=== PATIENT | male | born 1995 | race Caucasian/White ===

== ENCOUNTER 2025-02-10 18:22 | Emergency (ER) | payer OTHER, SELFPAY ==
[2025-02-10 18:23] VITALS: BP 135/90; PULSE 109; RESP 20; TEMP 37.2; O2SAT 99; BMI 28.0
[2025-02-10 20:18] VITALS: BP 135/90; PULSE 108; RESP 18; TEMP 37.2; O2SAT 99
--- NOTE | 2025-02-10 20:19 | EDS_ITS ---
HPI History of Present Illness Chief Complaint: Bite PFSH PFSH Medical History no medical history Home Medications ?Medication ?Instructions ?Recorded ?Last Taken ?Type amoxicillin 875 mg-potassium 1 tab PO BID 02/10/25 Unk nown History clavulanate 125 mg tablet amoxicillin 875 mg-potassium 1 tab PO BID 5 days #10 t abs 02/10/25 Unknown Rx clavulanate 125 mg tablet Allergy/AdvReac Type Severity Reaction Status Date / Time No Known Allergies Allergy Verified 02/10/25 18:23 Family History no significant family his Surgical History no surgical history Social History Smoking Status: Never smoker EXAM Physical Exam Const Vital Signs: 02/10/25 18:23 02/10/25 20:18 02/10/25 20:18 Temperature 98.9 F 98.9 F Temperature Source Oral Oral Pulse Rate 109 H 108 H Respiratory Rate 20 H 18 Respiratory Effort Normal Non-Labored Respiratory Pattern Normal Blood Pressure 135/90 H 135/90 H Blood Pressure Mean 105 105 Pulse Ox 99 99 Oxygen Delivery Method Room Air Room Air 02/10/25 21:00 02/10/25 22:00 Temperature 98.6 F 98.6 F Temperature Source Oral Oral Pulse Rate 98 95 Respiratory Rate 18 16 Respiratory Effort Respiratory Pattern Blood Pressure 143/93 H 122/81 H Blood Pressure Mean 109 94 Pulse Ox 97 100 Oxygen Delivery Method Room Air Room Air MDM MDM MDM Narrative Medical decision making narrative: HISTORY OF PRESENT ILLNESS: Chief complaint: Cat bite 29-year-old male with no significant past medical history presents with concern for cat bite. yesterday and was started on Augmentin. He is not compliant with antibiotics. He noticed today streaking up his right arm with redness and swelling of right hand. Patient notes he is right-hand dominant. Denies diabetes or other immunocompromising states. Denies vomiting. Notes 2 doses of Augmentin. REVIEW OF SYSTEMS: Pertinent positives: Cat bite Pertinent negatives: Vomiting, fever PHYSICAL EXAM: Nursing triage notes reviewed, Vital signs reviewed Constitutional: please see mdm Extremities: Erythema and swelling noted to the dorsal lateral surface of the right hand essentially over the 2nd and 3rd MCP down to the base of the first digit. There is no fluctuance induration crepitus or bullae. There is lymphangitic streaking noted up right arm. Neuro: Intact 5/5 strength with ok sign (median), intact finger abduction (ulnar) intact wrist extension (radial n). Intact sensation in the radial, ulnar, and median nerve distributions. Skin: Puncture wound noted over the dorsum of the right hand. No purulent drainage. MEDICAL DECISION MAKING: Chief Complaint: please see HPI External records reviewed: No recent ED visits, recent advanced imaging Factors affecting care: none Social determinants of health: Denies IV drug use History obtained from others: none Consults: none MDM Narrative: The patient was initially afebrile, he was mildly tachycardic with heart rate of 109, borderline tachypneic with respirate of 20. Exam consistent with progressing cat bite. I considered the following differential diagnosis: Sequela of cat bite, sepsis I obtained a broad lab and imaging to further determine if the patient was suffering from a life-threatening etiology. Initially treat the patient with IV fluids and IV Unasyn empirically. ALL IMAGES (IF OBTAINED) HAVE BEEN PERSONALLY REVIEWED AND INTERPRETED BY MYSELF. CBC with leukocytosis suggestive of systemic inflammation, no anemia, no thrombocytopenia. Lactate is wnl indicating no end-organ hypoperfusion and/or hypoxia. BMP without evidence of significant electrolyte abnormalities, no anion gap, no acute kidney injury. X-ray of the patient's hand was read reviewed person by myself showed no evidence obvious bony injury or foreign body. Radiologist agreed my interpretation. Upon reassessment patient's heart rate improved from 109 to 95. Respiratory rate improved to 16. There is no signs of sepsis. No complicating factors such as immunocompromise state, vomiting, foreign bodies. Patient's only had 24 hours of antibiotics. I offered admission given redness and lymphangitic streak in however patient refused and he would like to go home and try oral antibiotics for a full course. I did extend his course from 5 to 10 days ago and additional 5 days of Augmentin. The patient and/or family, caregivers express understanding. The patient and/or family, caregivers agrees with the plan. Shared decision making: I will have a discussion with the patient and or visitors regarding risk/benefits of further testing or admission. They will be made aware of of the risk/benefits inherent in this decision they will be given the opportunity to voice understanding. Total critical care time today provided was at least 0 minutes. This excludes separately billable procedures. Critical care time (if documented) is secondary to the patient having high probability of clinically significant/life threatening deterioration in the patient's condition which required my urgent intervention. Impression: 1. Cat bite 2. Tachycardia Dispo: discharge This note was generated with [employer] dictation software. It may contain incorrect words, spelling, and punctuation that were not noted in review of the chart prior to signing. Lab Data Labs: Laboratory Results - last 24 hr 02/10/25 20:30 WBC 12.7 H RBC 5.65 Hgb 16.0 Hct 46.4 MCV 82.1 MCH 28.3 MCHC 34.5 RDW Std Deviation 38.4 RDW Coeff of Emily 13.0 Plt Count 315 MPV 8.9 Immature Gran % (Auto) 0.300 Neut % (Auto) 69.2 Lymph % (Auto) 22.2 [place] % (Auto) 6.8 Eos % (Auto) 0.9 Baso % (Auto) 0.6 Absolute Neuts (auto) 8.7 H Absolute Lymphs (auto) 2.81 Nucleated RBC % 0 Sodium 139 Potassium 3.8 Chloride 102 Carbon Dioxide 23.1 Anion Gap 14 BUN 14 Creatinine 1.00 Estim Creat Clear Calc 117.53 Est GFR (MDRD) Non-Af 104 BUN/Creatinine Ratio 13.7 Glucose 84 Lactic Acid 1.1 Calcium 9.7 Radiography Diagnostic Testing: Clinical Impression(s) from Imaging Studies Hand X-Ray 02/10/25 20:42 IMPRESSION: No fracture or dislocation. No radiopaque foreign body. Reading Location: [facility] Discharge Plan Triage Chief Complaint: Bite ED Provider: Luciano Diaz Dx/Rx/DC Orders Instructions: ED Cat Bite Prescriptions: New amoxicillin-pot clavulanate 875-125 mg tablet 1 tab PO BID 5 Days Qty: 10 0RF No Action amoxicillin-pot clavulanate 875-125 mg tablet 1 tab PO BID Primary Care Provider: Kacey Vazquez NP Referrals: Princess Leahy MD [Non-Staff, Pediatrics] Activity Restrictions/Additional Instructions: Thank you for trusting us with your care today! Your labs and images were overall reassuring. No definitive signs of sepsis. No sign of a foreign body or other complicating factor at the area of cat bite. Please take Tylenol (2 pills, 650 mg), ibuprofen (2 pills, 400 mg) every 6 hours as needed for pain and fever control. Please take antibiotics for a total of 10 days. Please return to the emergency department if your symptoms change or worsen. Specifically if you notice vomiting, severe pain, rapidly progressive redness over a matter of hours, if you lose consciousness or develop diffuse weakness to cause you not to be able to walk. Please follow with your primary care physician for further outpatient evaluation and management. Print Language: Citizen Of [place] Disposition Disposition: Home, Self Care Discharge Date/Time: 02/10/25 22:52
[2025-02-10 20:37] LABS: Hematocrit 46.4 % (40-54); Hemoglobin 16.0 g/dL (13.0-16.5); Immature Granulocytes Count 0.040 X10^3/uL (0.0-0.0); Mean Corp Hgb Conc 34.5 g/dL (32-36); Mean Corpuscular Volume 82.1 fL (80-94); Mean Platelet Vol. 8.9 fl (6.2-12.0); NRBC Flagged by Analyzer 0 % (0-5); Platelet Count 315 K/mm3 (150-450); RBC Distribution Width CV 13.0 % (11.6-14.6); RBC Distribution Width SD 38.4 fl (35.1-43.9); Red Blood Count 5.65 M/mm3 (4.6-6.2); White Blood Count 12.7 K/mm3 (4.4-11.0)
--- NOTE | 2025-02-10 20:42 | RAD_ITS ---
PROCEDURE: HAND MIN 3 VIEWS 02/10/2025 REASON FOR EXAM: PAIN AFTER CAT BITE TECHNIQUE: Procedure Code: PAULINO Modality: DX Procedure: HAND MIN 3 VIEWS Laterality: Right COMPARISON: None. FINDINGS: No acute fracture or dislocation. Alignment is anatomic. Preserved joint spaces. No aggressive osseous lesion. No marked soft tissue swelling or radiopaque foreign body. RAD/Hand Min 3 Views IMPRESSION: No fracture or dislocation. No radiopaque foreign body. Reading Location: [id number]
[2025-02-10] MEDS: Ampicillin/Sulbactam 3 GM in 0.9% Normal Saline (100mL MB+) 100 ML IV (20:44)
[2025-02-10] MEDS: 0.9% Normal Saline (1000mL) 1,000 ML 999 ML IV (20:44)
--- OUTSIDE RECORDS SUMMARY | 2025-02-10 20:53 | XMS RPT_ITS | CCD ---
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.Artemio YORK Primary Care Provider ARTEMIO MADSEN Attending Unavailable ARTEMIO MADSEN Primary Care Unavailable ARTEMIO MADSEN Primary Care Unavailable AMAIRANI MONTERO Referring Unavailable BLADIMIR FREEDMAN Attending Unavailable AMAIRANI MONTERO Attending Unavailable ARTEMIO MADSEN Referring Unavailable ARTEMIO MADSEN Primary Care Unavailable ARTEMIO MADSEN Referring Unavailable ARTEMIO MADSEN Primary Care Unavailable Problems Active Problems Problem Classification Problem Date Documented Da te Episodic/Chronic Coma; stupor; and brain damage (1 source) Daytime somnolence 04-08-2024 Episodic Gastrointestinal hemorrhage (5 sources) Gastrointestinal hemorrhage; Translations: [Hemorrhage of anus and rectum] Onset: 5 06-11-2024 Episodic Hemorrhoids (4 sources) Internal hemorrhoids; Translations: [Other hemorrhoids] Onset: 5 07-03-2024 Episodic Immunizations and screening for infectious disease (6 sources) Viral screening status; Translations: [Encounter for screening for other viral diseases] Onset: 5 04-07-2024 Episodic Malaise and fatigue (4 sources) Fatigue; Translations: [Other fatigue] Onset: 5 04-08-2024 Episodic Other gastrointestinal disorders (2 sources) Diarrhea; Translations: [Diarrhea, unspecified] 04-08-2024 Episodic Other gastrointestinal disorders (6 sources) Altered bowel function; Translations: [Other specified symptoms and signs involving the digestive system and abdomen] 04-08-2024 Episodic Other gastrointestinal disorders (2 sources) Diarrhea, unspecified; Translations: [Diarrhea, unspecified type] Onset: 5 Episodic Other gastrointestinal disorders (2 sources) Other specified symptoms and signs involving the digestive system and abdomen; Translations: [Change in bowel function] Onset: 5 Episodic Other gastrointestinal disorders (1 source) Change in bowel habit; Translations: [Change in bowel habits] Onset: 5 Episodic Other lower respiratory disease (2 sources) Snoring; Translations: [Snoring] 04-08-2024 Episodic Other lower respiratory disease (1 source) Snoring; Translations: [Snoring] Onset: 5 Episodic Other screening for suspected conditions (not mental disorders or infectious disease) (6 sources) Patient encounter status; Translations: [Encounter for screening for diabetes mellitus] Onset: 5 04-07-2024 Episodic Residual codes; unclassified (1 source) Daytime somnolence; Translations: [Other hypersomnia] 04-07-2024 Chronic Residual codes; unclassified (2 sources) Other hypersomnia; Translations: [Excessive daytime sleepiness] Onset: 5 Chronic Past or Other Problems Problem Classification Problem Date Documented Da te Episodic/Chronic Genitourinary symptoms and ill-defined conditions (7 sources) Increased frequency of urination; Translations: [Frequency of micturition] Onset: 05-04-2017 05-04-2017 Episodic Results Test Name Value Interpretation Reference Range Facil ity [id number] 07-03-2024 1944219 HNO ID: [id number] Author: NAYANA DOCKERY RN Service: ? Author Type: Registered Nurse Type: [id number] Filed: 07/03/2024 15:35 Note Text: The patient received a copy of Colonoscopy discharge instructions that contain information for how to contact the physician who performed the procedure and when to seek medical care. Normal [facility] ANES POSTPROC EVALon 025 ANES POSTPROC EVAL HNO ID: [id number] Author: ALEC SPEAR APRN.CRNA Service: Anesthesiology Author Type: Nurse Finance Consultant Type: Anesthesia Postprocedure Evaluation Filed: 07/03/2024 15:35 Note Text: POST ANESTHESIA EVALUATION NOTE : 1995 Procedure Summary Date: 07/03/24 Room / Location: Ambulatory Surgery Anesthesia Start: 1500 Anesthesia Stop: 1530 Procedure: COLONOSCOPY DIAGNOSTIC Diagnosis: Change in bowel habits BRBPR (bright red blood per rectum) Scheduled Providers: Bladimir Freedman MD Responsible Provider: Alec Spear APRN.CRNA Anesthesia Type: MAC ASA Status: 1 Anesthesia Type: MAC Last Vitals Vitals Value Taken Time BP 110/68 07/03/24 1530 Temp 36.4 ?C (97.5 ?F) 07/03/24 1530 Pulse 80 07/03/24 1530 Resp 18 07/03/24 1530 SpO2 98 % 07/03/24 1530 Post Anesthesia Patient Status Patient Evaluation: PACU. PACU/ICU Patient Condition: stable. Neurological Status: aware and responsive. Pulmonary Status: breathing comfortably on room air Airway Control: returned to baseline unsupported. Cardiovascular Status: stable. Pain Management: clinically adequate - multimodal analgesia pain management approach Postoperative Hydration: acceptable. Intraoperative Events: no significant anesthesia events Post Operative Nausea/Vomiting Status: no significant post operative nausea or vomiting Recommendation: continue current plan of care. Anesthesia Observations No Documentation SIGNATURE: Alec Spear APRN.CRNA PATIENT NAME: AWA Goss DATE: July 03, 2024 TIME: 3:34 PM CSN: [id number] Normal [facility] ANES PRE-OPon 07-03-2024 ANES PRE-OP HNO ID: [id number] Author: ALEC SPEAR APRN.CRNA Service: Anesthesiology Author Type: Nurse Finance Consultant Type: Anesthesia Preprocedure Evaluation Filed: 07/03/2024 15:34 Note Text: ANESTHESIOLOGY DAY OF SURGERY NOTE : 1995 Procedure Information Date/Time: 07/03/24 1430 Scheduled providers: Bladimir Freedman MD Procedure: COLONOSCOPY DIAGNOSTIC Location: Ambulatory Surgery Estimated body mass index is 26.61 kg/m? as calculated from the following: Height as of this encounter: 172.7 cm (5' 8). Weight as of this encounter: 79.4 kg (175 lb). Most recent hematocrit and potassium results: Hematocrit 43.8 05/26/2024 Potassium 4.3 05/26/2024 Relevant Problems No relevant active problems I - PHYSICAL EVALUATION AIRWAY Patient intubated: No. Tracheostomy tube not present Mallampati: II. TM distance: >3 FB. Neck ROM: full ROM without neurological symptoms. Mouth opening: adequate. Short neck: no. Thick neck: no II - ANESTHESIA PLAN ASA Score: 1 Anesthetic Plan: MAC The patient is not a current smoker. NPO Status: adequate Beta Glenny Monitoring Plan Monitoring plan: standard ASA. Post Procedure Analgesic Plan Postoperative analgesic plan: multimodal analgesia. Informed Consent Anesthetic risks, benefits, alternatives, personnel and consent discussed: yes. Patient / Responsible Libertarian agrees to proceed: yes Patient / Surrogate agrees to blood products: blood products not planned DNR status not reviewed with patient and/or family prior to surgery. Significant changes in the patient condition since the History and Physical, not otherwise documented in primary service progress note: no. Potential Anesthesia issues that may suggest increased risk of complications or contraindication to planned procedure: none. Vitals Value Taken Time BP 131/90 07/03/24 1355 Pulse 111 07/03/24 1355 Resp 16 07/03/24 1355 Temp 37.1 ?C (98.8 ?F) 07/03/24 1355 SpO2 98 % 07/03/24 1355 No current outpatient medications on file as of 07/03/2024. Facility-Administered Medications as of 07/03/2024 Medication Dose Route Frequency lactated ringers iv infusion 30 mL/hr INTRAVENOUS CONTINUOUS I have interviewed and examined the patient. I have reviewed the medical record and/or the pre-anesthesia evaluation, pertinent labs, and test results. This contains updated information obtained within 48 hours of Surgery/Procedure. SIGNATURE: Alec Spear APRN.VAULT KEEPER PATIENT NAME: AWA Goss DATE: July 03, 2024 TIME: 2:13 PM CSN: [id number] Normal [facility] Colonoscopyon 07-03-2024 Colonoscopy [facility] G[facility] Patient Name: Awa Goss Procedure Date: 07/03/2024 2:42 PM Date of : 1995 Admit Type: Outpatient Age: 28 Room: [place] [address] Gender: Male Note Status: Finalized Attending MD: Bladimir Freedman MD, [id number] Procedure: Colonoscopy Indications: Lower abdominal pain, Change in bowel habits Providers: Bladimir Freedman MD Patient Profile: Refer to note in patient chart for documentation of history and physical. Last Colonoscopy: none. The patient's first colonoscopy is today. Referring Physician: Amairani Montero (pa) (Referring MD) Medicines: Monitored Anesthesia Care, See the Anesthesia note for documentation of the administered medications Complications: No immediate complications. Requesting Provider: Procedure: Pre-Anesthesia Assessment: - Prior to the procedure, a History and Physical was performed, and patient medications and allergies were reviewed. The patient's tolerance of previous anesthesia was also reviewed. The risks and benefits of the procedure and the sedation options and risks were discussed with the patient. All questions were answered, and informed consent was obtained. Prior Anticoagulants: The patient has taken no anticoagulant or antiplatelet agents. ASA Grade Assessment: See anesthesia record. After reviewing the risks and benefits, the patient was deemed in satisfactory condition to undergo the procedure. After I obtained informed consent, the scope was passed under direct vision. Throughout the procedure, the patient's blood pressure, pulse, and oxygen saturations were monitored continuously. The Colonoscope was introduced through the anus and advanced to the terminal ileum, with identification of the appendiceal orifice and IC valve. I was present and participated during the entire procedure, including non-amaro portions, and during the administration and monitoring of Moderate Sedation. The colonoscopy was performed without difficulty. The patient tolerated the procedure well. The quality of the bowel preparation was good. The ileocecal valve, appendiceal orifice, and rectum were photographed. Moderate Sedation: MAC anesthesia was administered by the anesthesia team. MAC anesthesia was administered by the anesthesia team. Findings: The perianal and digital rectal examinations were normal. Pertinent negatives include normal sphincter tone and no palpable rectal lesions. The colon (entire examined portion) appeared normal. Biopsies for histology were taken with a cold forceps from the right colon and left colon for evaluation of microscopic colitis. The pathology specimens from the right colon were placed into Bottle Number 1. The pathology specimens from the left colon were placed into Bottle Number 2. Non-bleeding internal hemorrhoids were found during retroflexion. The hemorrhoids were medium-sized. The terminal ileum appeared normal for 10 cm. The exam was otherwise without abnormality on direct and retroflexion views. Impression: - The entire examined colon is normal. Biopsied. - Non-bleeding internal hemorrhoids. - The examined portion of the ileum was normal. - The examination was otherwise normal on direct and retroflexion views. Recommendation: - Patient has a contact number available for emergencies. The signs and symptoms of potential delayed complications were discussed with the patient. Return to normal activities tomorrow. Written discharge instructions were provided to the patient. - Resume previous diet. - Continue present medications. - Repeat colonoscopy at age 44 for screening purposes. - Return to referring physician as previously scheduled. - The patient is not currently taking anticoagulant or antiplatelet agents. Procedure Code(s): --- Professional --- 38246, Colonoscopy, flexible; with biopsy, single or multiple CPT copyright 2020 [employer]. All rights reserved. The codes documented in this report are preliminary and upon bushwalking guide review may be revised to meet current compliance requirements. Attending Participation: I personally performed the entire procedure. Scope In: 3:10:24 PM Scope Out: 3:23:54 PM MD Bladimir Suarez MD 07/03/2024 3:43:57 PM This report has been signed electronically by Bladimir Freedman MD Number of Addenda: 0 Note Initiated On: 07/03/2024 2:42 PM Estimated Blood Loss: Estimated blood loss was minimal. Normal [facility] Flexible sigmoidoscopy study on 07-03-2024 [facility] G[facility] Patient Name: Awa Goss Procedure Date: 07/03/2024 2:42 PM Date of : 1995 Admit Type: Outpatient Age: 28 Room: [place] [address] Gender: Male Note Status: Finalized Attending MD: Bladimir Freedman MD, [id number] Procedure: Colonoscopy Indications: Lower abdominal pain, Change in bowel habits Providers: Bladimir Freedman MD Patient Profile: Refer to note in patient chart for documentation of history and physical. Last Colonoscopy: none. The patient's first colonoscopy is today. Referring Physician: Amairani Montero (pa) (Referring ) Medicines: Monitored Anesthesia Care, See the Anesthesia note for documentation of the administered medications Complications: No immediate complications. Requesting Provider: Procedure: Pre-Anesthesia Assessment: - Prior to the procedure, a History and Physical was performed, and patient medications and allergies were reviewed. The patient's tolerance of previous anesthesia was also reviewed. The risks and benefits of the procedure and the sedation options and risks were discussed with the patient. All questions were answered, and informed consent was obtained. Prior Anticoagulants: The patient has taken no anticoagulant or antiplatelet agents. ASA Grade Assessment: See anesthesia record. After reviewing the risks and benefits, the patient was deemed in satisfactory condition to undergo the procedure. After I obtained informed consent, the scope was passed under direct vision. Throughout the procedure, the patient's blood pressure, pulse, and oxygen saturations were monitored continuously. The Colonoscope was introduced through the anus and advanced to the terminal ileum, with identification of the appendiceal orifice and IC valve. I was present and participated during the entire procedure, including non-amaro portions, and during the administration and monitoring of Moderate Sedation. The colonoscopy was performed without difficulty. The patient tolerated the procedure well. The quality of the bowel preparation was good. The ileocecal valve, appendiceal orifice, and rectum were photographed. Moderate Sedation: MAC anesthesia was administered by the anesthesia team. MAC anesthesia was administered by the anesthesia team. Findings: The perianal and digital rectal examinations were normal. Pertinent negatives include normal sphincter tone and no palpable rectal lesions. The colon (entire examined portion) appeared normal. Biopsies for histology were taken with a cold forceps from the right colon and left colon for evaluation of microscopic colitis. The pathology specimens from the right colon were placed into Bottle Number 1. The pathology specimens from the left colon were placed into Bottle Number 2. Non-bleeding internal hemorrhoids were found during retroflexion. The hemorrhoids were medium-sized. The terminal ileum appeared normal for 10 cm. The exam was otherwise without abnormality on direct and retroflexion views. Impression: - The entire examined colon is normal. Biopsied. - Non-bleeding internal hemorrhoids. - The examined portion of the ileum was normal. - The examination was otherwise normal on direct and retroflexion views. Recommendation: - Patient has a contact number available for emergencies. The signs and symptoms of potential delayed complications were discussed with the patient. Return to normal activities tomorrow. Written discharge instructions were provided to the patient. - Resume previous diet. - Continue present medications. (more content not included)... PROVATION [facility] Radiology Study observation (narrative) [facility] HISTORY PHYSICALon 5 HISTORY PHYSICAL HNO ID: [id number] Author: BLADIMIR FREEDMAN MD Service: Gastroenterology Author Type: Physician Type: H&P Filed: 07/03/2024 14:53 Note Text: Endoscopy pre-operative HANDP HANDP completed prior to the start time of the procedure. IMPRESSION AND PLAN HPI: This is a 28 year old male. For colonoscopy Abdominal pain, BRBPR, changes in bowel habits. Pertinent Review of Systems: GI: See HPI All other reviewed and negative other than HPI. PAST MEDICAL HISTORY: PAST MEDICAL HISTORY Diagnosis Date NEGATIVE MEDICAL HISTORY 04/13/2016 PAST SURGICAL HISTORY: PAST SURGICAL HISTORY Procedure Laterality Date TONSILLECTOMY HX 2000 OBJECTIVE: PHYSICAL EXAM: VITALS: BP 131/90 Pulse 111 Temp 37.1 ?C (98.8 ?F) (Temporal) Resp 16 Ht 172.7 cm (5' 8) Wt 79.4 kg (175 lb) SpO2 98% BMI 26.61 kg/m? General appearance: AANDOx3 Respiratory: Normal chest expansion. No audible wheezes. CVS: No shortness of breath, no extremity edema. Regular pulse. Plan: OK to proceed with endoscopy. SIGNATURE: Bladimir Tomas MD PATIENT NAME: AWA Goss Normal [facility] Pathology biopsy report Mariano (Tiss)on 07-03-2024 AP DISCLAIMER Normal [facility] Comment on above: Order Comment: Speci men Type: TISSUE SPECIMEN Ordering Facility: [facility] Address: [address] [place] [address] Result Comment: Jose Luis Lira Test (LDT) Disclaimer: Performance characteristics of immunohistochemical, immunofluorescent, and chromogenic in-situ hybridization tests have been determined by the performing laboratory within [facility]'s Osman Scruggs Pathology and Laboratory Medicine Department ([facility], [facility], [facility], [facility], [facility], [facility], or [facility]) in a manner consistent with CLIA requirements. One or more of these tests may not have been cleared or approved by the FDA. [facility] is regulated under CLIA as qualified to perform high-complexity testing. These tests are used for clinical purposes. These should not be regarded as investigational or for research. Positive and negative controls stain appropriately. Performed By: #### 6 6121-5 #### [facility] CLIA [id number] [address] [address] [place] CASE REPORT Normal [facility] Comment on above: Order Comment: Speci men Type: TISSUE SPECIMEN Ordering Facility: [facility] Address: [address] [place] [address] Result Comment: Surg ical Pathology Report Case: [id number] Authorizing Provider: Bladimir Freedman MD Collected: 07/03/2024 03:17 PM Ordering Location: Ambulatory Surgery Received: 07/03/2024 08:38 PM Pathologist: Brandon Falcon MD Specimens: A) - Colon, Right, Biopsy, r/o microscopic colitis B) - Colon, Left, Biopsy, r/o microscopic colitis Performed By: #### 6 6121-5 #### [facility] CLIA [id number] [address] [place] [address] OF [facility] FINAL DIAGNOSIS Normal [facility] Comment on above: Order Comment: Speci men Type: TISSUE SPECIMEN Ordering Facility: [facility] Address: [address] [place] [address] Result Comment: A. C olon, right, biopsy: - Colonic mucosa with no diagnostic abnormality. B. Colon, left, biopsy: - Colonic mucosa with no diagnostic abnormality. at 1142 EDT Performed By: #### 6 6121-5 #### [facility] CLIA [id number] [address] [place] [address] OF [facility] FINAL PERFORMING LAB Normal [facility] Comment on above: Order Comment: Speci men Type: TISSUE SPECIMEN Ordering Facility: [facility] Address: [address] [place] [address] Result Comment: Diag nostic interpretation performed at: [facility], [address] [place] [address] CLIA# [id number] Shop Coordinator: Ashok Sanchez MD Performed By: #### 6 6121-5 #### [facility] CLIA [id number] [address] [place] [address] [place] GROSS DESCRIPTION Normal [facility] Comment on above: Order Comment: Speci men Type: TISSUE SPECIMEN Ordering Facility: [facility] Address: [address] [place] [address] Result Comment: A. C olon, Right, Biopsy Received in formalin are multiple pieces of greer, soft tissue aggregating to 1.4 x 0.3 x 0.2 cm. Totally submitted in one cassette. B. Colon, Left, Biopsy Received in formalin are two pieces of greer, soft tissue aggregating to 1.0 x 0.2 x 0.2 cm. Totally submitted in one cassette. [facility] July 04, 2024 12:58 AM Gross examination performed at [facility], [address] [place] [address] Performed By: #### 6 6121-5 #### [facility] IA [id number] [address] [place] [address] OF CAM CNOVon 06-11-2024 CNOV Office Visit ([facility] ) AWA GOSS ([id number]) 1995 M Date Time Provider Department 06/11/24 8:50 AM AMAIRANI MONTERO [facility] During your visit today, we recorded the following information about you: Pulse Blood pressure Weight Height 94/minute 130/76 83.9 kg 1.689 m Amairani Montero PA-C 06/11/2024 9:16 AM Signed CHIEF COMPLAINT: Patient presents with: Diarrhea: Labs 05/16/24. No solid bowel movements since March. Lower abdominal pain now comes and goes. Took OTC stool softeners that helped. HPI: Patient is a 28-year-old male presenting for evaluation of chronic bowel inconsistencies, which have been ongoing for a couple of years. He reports having at least one bowel movement per day, sometimes two, with stool consistency typically resembling a [place]leaf Stool Score of Type 4, but thinner and described as ribbony. He also experiences alternating liquid stools. Hematochezia is noted only with solid stools, with blood observed on wiping rather than mixed with the stool. He denies current abdominal pain, nausea, or emesis. In early April, patient experienced severe abdominal pain described as a pulsing, burning sensation in the groin and lower abdomen, which was alleviated after taking stool softeners and passing a large, solid bowel movement followed by loose stools. He attributes this episode to a possible bowel obstruction. He denies regular use of NSAIDs such as Advil or ibuprofen, but takes them as needed. He also denies experiencing regular stress or anxiety. Patient's diet is primarily carbohydrate and protein-based, with limited fiber intake. He started taking Metamucil fiber supplements in March, as recommended by his primary care physician, and consumes 0-2 packets per day. He reports poor fluid intake and consumes a lot of energy drinks. He occasionally experiences heartburn when eating spicy foods. He denies alcohol consumption. Patient was adopted and is unaware of any family history of gastrointestinal issues. 05/26/2024 Celiac negative Latest Ref Rng 05/26/2024 Protein, Total 6.3 - 8.0 g/dL 6.9 Albumin 3.9 - 4.9 g/dL 4.4 Calcium 8.5 - 10.2 mg/dL 9.8 Bilirubin, Total 0.2 - 1.3 mg/dL 0.7 Alkaline Phosphatase 38 - 113 U/L 55 AST 14 - 40 U/L 21 ALT 10 - 54 U/L 22 Glucose 74 - 99 mg/dL 86 BUN 9 - 24 mg/dL 13 Creatinine 0.73 - 1.22 mg/dL 1.01 Sodium 136 - 144 mmol/L 139 Potassium 3.7 - 5.1 mmol/L 4.3 Chloride 98 - 107 mmol/L 105 CO2 22 - 30 mmol/L 24 Anion Gap 8 - 15 mmol/L 10 eGFR >=60 mL/min/1.73m? 103 WBC 3.70 - 11.00 k/uL 7.09 RBC 4.20 - 6.00 m/uL 5.33 Hemoglobin 13.0 - 17.0 g/dL 15.5 Hematocrit 39.0 - 51.0 % 43.8 MCV 80.0 - 100.0 fL 82.2 MCH 26.0 - 34.0 pg 29.1 MCHC 30.5 - 36.0 g/dL 35.4 RDW-CV 11.5 - 15.0 % 12.9 Platelet Count 150 - 400 k/uL 300 MPV 9.0 - 12.7 fL 9.1 Absolute nRBC <0.01 k/uL 0.02 (H) HIV 12 Combo (Ag/Ab) Nonreactive Nonreactive HIV 1/2 Ab -- HIV Interpretation -- Hep C Antibody IA Negative Negative TSH 0.270 - 4.200 mIU/L 1.460 Record Review: [facility] / Outside records reviewed. PAST MEDICAL HISTORY Diagnosis Date NEGATIVE MEDICAL HISTORY 04/13/2016 PAST SURGICAL HISTORY Procedure Laterality Date TONSILLECTOMY HX 2000 Allergies: ALLERGIES No Known Allergies Medications: No prescriptions on file. FAMILY HISTORY Adopted: Yes Problem Relation Age of Onset No Known Problems Mother No Known Problems Father No Known Problems Sister No Known Problems Brother No Known Problems Maternal Grandmother No Known Problems Maternal Grandfather No Known Problems Paternal Grandmother No Known Problems Paternal Grandfather No Known Problems Other Employer And Job Title: None on file Years Of Education Completed: Not specified Marital Status: Social History Tobacco Use Smoking status: Never Smokeless tobacco: Never Tobacco comments: no e cigs or vaping. Vaping Use Vaping status: Never Used Substance Use Topics Alcohol use: Not Currently Alcohol/week: 1.0 standard drink of alcohol Types: 1 Shots of liquor per week Drug use: No Review of Systems: Review of Systems Gastrointestinal: Positive for abdominal pain and diarrhea. All other systems reviewed and are negative. Are you taking any blood thinners? No Physical Examination: BP 130/76 Pulse 94 Ht 168.9 cm (5' 6.5) Wt 83.9 kg (185 lb) SpO2 99% BMI 29.41 kg/m? Physical Exam Constitutional: General: He is not in acute distress. Appearance: Normal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 Location: [facility] Status: Signed Intake Intake Visit Reasons: COVID TEST/VÍCTOR BRAND Allergies No Known Allergies Allergy (Unverified 09/12/21 07:03) Results POC CEPH COV,FluAB,RSV PCR CEPHEID COVID PCR DETECTED Last Edit by Gini Hurst on 09/12/21 07:42 CEPHEID FLU AB PCR NOT DETECTED FLU A B Last Edit by Gini Hurst on 09/12/21 07:42 CEPHEID RSV PCR NOT DETECTED Last Edit by Gini Hurst on 09/12/21 07:42 09/12/21 0808 Date Toribio Bateman Signature: Date (if applicable) CC: Normal [facility] Vital Signs Date Time Vital Sign Value Performing Clinician Sergioi jason 07-03-2024 15:45-0400 Diastolic blood pressure 82 mm[Hg] Bladimir Freedman MD Work Phone: [facility] 07-03-2024 15:45-0400 Heart rate 84 /min Bladimir Freedman MD Work Phone: [facility] 07-03-2024 15:45-0400 Respiratory rate 18 /min Bladimir Freedman MD Work Phone: [facility] 07-03-2024 15:45-0400 SaO2% (BldA) [Mass fraction] 97 % Bladimir Freedman MD Work Phone: [facility] 07-03-2024 15:45-0400 Systolic blood pressure 127 mm[Hg] Bladimir Freedman MD Work Phone: [facility] 07-03-2024 15:30-0400 Body temperature 97.5 [degF] Bladimir Freedman MD Work Phone: [facility] 07-03-2024 13:55-0400 Body height 172.7 cm Bladimir Freedman MD Work Phone: [facility] 07-03-2024 13:55-0400 Body mass index (BMI) [Ratio] 26.61 kg/m2 Bladimir Freedman MD Work Phone: [facility] 07-03-2024 13:55-0400 Body weight 79.38 kg Bladimir Freedman MD Work Phone: [facility] 06-11-2024 08:33-0400 Body height 168.9 cm Amairanitamaar Trinidadka PA-C Work Phone: [facility] 06-11-2024 08:33-0400 Body mass index (BMI) [Ratio] 29.41 kg/m2 Amairani Kalka PA-C Work Phone: [facility] 06-11-2024 08:33-0400 Body weight 83.92 kg Amairani Kalka PA-C Work Phone: [facility] 06-11-2024 08:33-0400 Diastolic blood pressure 76 mm[Hg] Amairani Kalka PA-C Work Phone: [facility] 06-11-2024 08:33-0400 Heart rate 94 /min Amairani Kalka PA-C Work Phone: [facility] 06-11-2024 08:33-0400 SaO2% (BldA) [Mass fraction] 99 % Amairani Kalka PA-C Work Phone: [facility] 06-11-2024 08:33-0400 Systolic blood pressure 130 mm[Hg] Amairani Kalka PA-C Work Phone: [facility] 04-07-2024 14:51-0500 Body height 168.9 cm Artemio Madsen SUPERVISOR RESIDENTIAL.BENEFITS COORDINATOR Work Phone: [facility] 04-07-2024 14:51-0500 Body mass index (BMI) [Ratio] 29.44 kg/m2 Artemio Martinel SUPERVISOR RESIDENTIAL.BENEFITS COORDINATOR Work Phone: [facility] 04-07-2024 14:51-0500 Body weight 84.01 kg Artemio Madsen SUPERVISOR RESIDENTIAL.BENEFITS COORDINATOR Work Phone: [facility] 04-07-2024 14:51-0500 Diastolic blood pressure 72 mm[Hg] Artemio Taylor SUPERVISOR RESIDENTIAL.BENEFITS COORDINATOR Work Phone: [facility] 04-07-2024 14:51-0500 Heart rate 102 /min Artemio Taylor SUPERVISOR RESIDENTIAL.BENEFITS COORDINATOR Work Phone: [facility] 04-07-2024 14:51-0500 Respiratory rate 18 /min Artemio Taylor SUPERVISOR RESIDENTIAL.BENEFITS COORDINATOR Work Phone: [facility] 04-07-2024 14:51-0500 SaO2% (BldA) [Mass fraction] 96 % Artemio Madsen SUPERVISOR RESIDENTIAL.BENEFITS COORDINATOR Work Phone: [facility] 04-07-2024 14:51-0500 Systolic blood pressure 126 mm[Hg] Artemio Taylor SUPERVISOR RESIDENTIAL.BENEFITS COORDINATOR Work Phone: [facility] Encounters Encounter Date Encounter Type Care Provider Facility Start: 07-04-2024 End: 09-03-2024 Follow-up encounter [facility] Montero PA-C [facility] Start: 07-03-2024 ambulatory ARTEMIO MADSEN Facili ty:[facility] Start: 07-03-2024 End: 07-03-2024 Subsequent hospital visit by physician Bladimir Freedman MD Work Phone: Ambulatory Surgery Comment on above: Change in bowel habi ts [R19.4] Start: 07-01-2024 End: 07-01-2024 Admission to same day surgery center Bladimir Freedman MD Work Phone: Ambulatory Surgery Start: 07-01-2024 End: 07-01-2024 ambulatory Bladimir Freedman MD Work Phone: Ambulatory Surgery Start: 06-25-2024 End: 06-25-2024 Admission to same day surgery center Bladimir Freedman MD Work Phone: Ambulatory Surgery Start: 06-25-2024 End: 06-25-2024 ambulatory Bladimir Freedman MD Work Phone: Ambulatory Surgery Start: 06-11-2024 End: 06-11-2024 Patient encounter procedure Amairani Montero PA-C [facility] Comment on above: Change in bowel habi ts (Primary Dx); BRBPR (bright red blood per rectum) Start: 06-11-2024 End: 06-11-2024 ambulatory AMAIRANI MONTERO Facility:[facility] Start: 05-27-2024 End: 05-27-2024 Follow-up encounter Artemio Madsen SUPERVISOR RESIDENTIAL.BENEFITS COORDINATOR Work Phone: [facility] Comment on above: Results Start: 05-26-2024 End: 05-26-2024 ambulatory ARTEMIO MADSEN Facility:[facility] Start: 04-07-2024 End: 04-07-2024 Patient encounter procedure Artemio Madsen SUPERVISOR RESIDENTIAL.BENEFITS COORDINATOR Work Phone: [facility] Comment on above: Diarrhea, unspecifie d type (Primary Dx); Change in bowel function; Fatigue, unspecified type; Excessive daytime sleepiness; Snoring; Special screening examination for viral disease; Screening for HIV (human immunodeficiency virus); Encounter for screening for diabetes mellitus; Screening for lipid disorders Start: 04-07-2024 End: 04-07-2024 ambulatory ARTEMIO MADSEN Facility:[facility] Procedures Date Procedure Procedure Detail Performing Clinician Start: 07-03-2024 Colonoscopy flx dx w /collj spec when pfrmd Amairani Montero PA-C Work Phone: Plan of Treatment Date Care Activity Detail Author Start: 04-13-2026 Urine microalbumin profile DTaP,Tdap,Td Vaccine (3 - Td or Tdap) [facility] Start: 04-07-2025 Anxiety Screening Anxiety Screening [facility] Comment on above: Postponed from 2012 (Postponed To Appropriate Date) Start: 04-07-2025 Depression Screening Depression Screening [facility] Comment on above: Postponed from 2012 (Postponed To Appropriate Date) Start: 04-07-2025 Hepatitis B Vaccine (1 of 3 - 19+ 3-dose series) Hepatitis B Vaccine (1 of 3 - 19+ 3-dose series) [facility] Comment on above: Postponed from 2013 (Declined at t his time) Start: 10-27-2024 Influenza vaccination Influenza Vaccine (#1) [facility] Start: 07-10-2024 End: 07-10-2024 Patient encounter procedure 07/10/2024 8:20 AM EDT Office Visit [facility] [address] [place] [address] Artemio Madsen SUPERVISOR RESIDENTIAL.BENEFITS COORDINATOR [address] [place] [address] [facility] Comment on above: General health Start: 07-03-2024 End: 07-03-2024 Patient encounter procedure 07/03/2024 2:30 PM EDT Appointment Ambulatory Surgery [address] [place] [id number] Bladimir Freedman MD [address] [place] [id number] Change in bowel habits [R19.4] [facility] Surgery Comment on above: Change in bowel habits [R19.4] Start: 06-16-2024 End: 06-16-2024 Anesthesia consultation 06/16/2024 11:59 PM EDT Anesthesia Event Ambulatory Surgery [address] [place] [address] Brittanie Torres APRN.VAULT KEEPER [address] [place], [place] [id number] Ambulatory Surgery Start: 06-11-2024 End: 06-11-2024 Patient encounter procedure 06/11/2024 8:50 AM EDT Office Visit [facility] [address] [place] [address] Amairani Montero PA-C [address] [place], [place] [id number] Diarrhea, unspecified type [R19.7]; Change in bowel function [R19.8] [facility] Comment on above: Diarrhea, unspecified type [R19.7]; Garcia ge in bowel function [R19.8] Start: 04-07-2024 End: 07-07-2024 CBC panel - Blood by Automated count COMPLETE BLOOD COUNT Lab Routine Fatigue, unspecified type Excessive daytime sleepiness Expected: 04/07/2024, Expires: 07/07/2024 [facility] Comment on above: Expected: 04/07/2024, Expires: Start: 04-07-2024 End: 07-07-2024 CELIAC SCREEN WITH REFLEX CELIAC SCREEN WITH REFLEX Lab Routine Diarrhea, unspecified type Change in bowel function Expected: 04/07/2024, Expires: 07/07/2024 [facility] Comment on above: Expected: 04/07/2024, Expires: Start: 04-07-2024 End: 07-07-2024 Comprehensive metabolic 2000 panel - Serum or Plasma COMPREHENSIVE METABOLIC PANEL Lab Routine Encounter for screening for diabetes mellitus Expected: 04/07/2024, Expires: 07/07/2024 [facility] Comment on above: Expected: 04/07/2024, Expires: Start: 04-07-2024 End: 07-07-2024 Hepatitis C virus Ab [Presence] in Serum HEPATITIS C ANTIBODY IA WITH CONFIRMATION Lab Routine Special screening examination for viral disease Expected: 04/07/2024, Expires: 07/07/2024 [facility] Work Phone: Comment on above: Expected: 04/07/2024, Expires: Start: 04-07-2024 End: 07-07-2024 HIV 1+2 Ab [Presence] in Serum or Plasma by Immunoassay HIV 1/2 COMBO WITH REFLEX TO DIFFERENTIATION Lab Routine Screening for HIV (human immunodeficiency virus) Expected: 04/07/2024, Expires: 07/07/2024 [facility] Comment on above: Expected: 04/07/2024, Expires: Start: 04-07-2024 End: 07-07-2024 Lipid 1996 panel - Serum or Plasma LIPID PANEL BASIC Lab Routine Screening for lipid disorders Expected: 04/07/2024, Expires: 07/07/2024 [facility] Comment on above: Expected: 04/07/2024, Expires: Start: 04-07-2024 End: 07-07-2024 Thyrotropin [Units/volume] in Serum or Plasma THYROID STIMULATING HORMONE Lab Routine Fatigue, unspecified type Excessive daytime sleepiness Expected: 04/07/2024, Expires: 07/07/2024 [facility] Comment on above: Expected: 04/07/2024, Expires: Start: 2012 Hepatitis C screening Hepatitis C Screening [facility] Start: 2012 HIV screening HIV Screening [facility] End: 06-11-2025 Flexible sigmoidoscopy study COLONOSCOPY DIAGNOSTIC Endoscopy Routine Change in bowel habits BRBPR (bright red blood per rectum) 1 Occurrences starting 06/11/2024 until 06/11/2025 [facility] Work Phone: Comment on above: 1 Occurrences starting 06/11/2024 until 06/11/2025 End: 04-07-2025 HOME SLEEP APNEA TEST (HSAT) HOME SLEEP APNEA TEST (HSAT) Procedures Routine Fatigue, unspecified type Excessive daytime sleepiness Snoring 1 Occurrences starting 04/07/2024 until 04/07/2025 [facility] Comment on above: 1 Occurrences starting 04/07/2024 until 04/07/2025 Tissue Pathology biopsy report [facility] Work Phone: Comment on above: Release Upon Ordering for 1 Occurrences starting 07/03/2024, 1 completed Immunizations Immunization Date Immunization Notes Care Provider [facility] 01-20-2024 influenza, seasonal, injectable, preservative free Amairani Montero PA-C Work Phone: [facility] 01-20-2024 influenza virus vacc ine, unspecified formulation Amairani FLOODC Work Phone: [facility] 04-13-2016 influenza, injectabl e, quadrivalent, preservative free Artemio Taylor SUPERVISOR RESIDENTIAL.BENEFITS COORDINATOR Work Phone: [facility] 04-13-2016 tetanus toxoid, redu vanda diphtheria toxoid, and acellular pertussis vaccine, adsorbed Artemio Taylor SUPERVISOR RESIDENTIAL.BENEFITS COORDINATOR Work Phone: [facility] 09-02-2012 human papilloma viru s vaccine, quadrivalent Amairani BERNAL-C Work Phone: [facility] 09-02-2012 meningococcal polysaccharide (groups A, C, Y and W-135) diphtheria toxoid conjugate vaccine (MCV4P) Amairani Montero PA-C Work Phone: [facility] 10-13-2010 human papilloma viru s vaccine, quadrivalent Amairani BERNAL-C Work Phone: [facility] 08-12-2010 human papilloma viru s vaccine, quadrivalent Amairani Wyatt TAVAREZ Work Phone: [facility] 08-12-2010 varicella virus vaccine Ronen kaur Wyatt TAVAREZ Work Phone: [facility] 03-10-2009 influenza virus vacc ine, live, attenuated, for intranasal use Amairanitamara Montero PA-C Work Phone: [facility] 04-02-2008 hepatitis A vaccine, pediatric/adolescent dosage, 2 dose schedule Amairani Wyatt TAVAREZ Work Phone: [facility] 04-02-2008 tetanus toxoid, redu vanda diphtheria toxoid, and acellular pertussis vaccine, adsorbed Amairanitamara BERNAL-Thomas Work Phone: [facility] 03-04-2008 influenza, seasonal, injectable Amairani Montero PA-C Work Phone: [facility] 03-25-2007 hepatitis A vaccine, pediatric/adolescent dosage, 2 dose schedule Amairani Wyatt BERNAL-Thomas Work Phone: [facility] 03-25-2007 meningococcal polysaccharide (groups A, C, Y and W-135) diphtheria toxoid conjugate vaccine (MCV4P) Amairanitamara BERNAL-Thomas Work Phone: [facility] 02-27-2007 influenza virus vacc ine, whole virus Amairani Montero PA-C Work Phone: [facility] Payers Date Payer Category Payer Private Health Insurance [employer] [id number] 2020 Private Health Insurance [id number] Social History Date Type Detail Facility Start: 04-13-2016 Tobacco smoking stat us NHIS Never smoked tobacco [facility] Work Phone: Start: 04-13-2016 Tobacco use and exposure Smokeless tobacco non-user [facility] Start: 04-07-2024 End: 07-03-2024 Alcoholic beverage intake Ex-drinker (finding) [facility] Start: 04-07-2024 End: 07-03-2024 Alcoholic beverage intake [facility] Start: 04-07-2024 End: 07-03-2024 Tobacco use panel [facility] Adult Depression Screening Assessment 0 [facility] Start: 04-13-2016 Tobacco Comment no e cigs or vaping. [facility] Start: 1995 Sex assigned at Male C [facility] Start: 04-06-2024 Gender identity Identifies as male gender (finding) [facility] Clinical Notes 04-07-2024 to 07-03-2024 Nayana Dockery RN - 07/03/2024 4:07 PM EDTEnNayana hopson RN - 07/03/2024 4:07 PM EDTDischarge Instr - Nursing - Nayana Dockery RN - 07/03/2024 3:35 PM EDTPatient Instructions Note Date & Type Note Facility 07-03-2024 Note HNO ID: [id number] Author: NAYANA DOCKERY RN Service: ? Author Type: Registered Nurse Type: Nursing Progress Note Filed: 07/03/2024 16:08 Note Text: Physician at bedside to discuss procedure/findngs with patient. [facility] 07-03-2024 Nurse Note Physician at bedside to discuss procedure/findngs with patient. [facility] 07-03-2024 Nurse Note Physician at bedside to discuss procedure/findngs with patient. documented in this encounter [facility] 07-03-2024 Note Formatting of this n ote might be different from the original. The patient received a copy of Colonoscopy discharge instructions that contain information for how to contact the physician who performed the procedure and when to seek medical care. [facility] 07-03-2024 Miscellaneous Notes The patient received a copy of Colonoscopy discharge instructions that contain information for how to contact the physician who performed the procedure and when to seek medical care. documented in this encounter [facility] 07-03-2024 History and physical note Endoscopy pre-operative H&P H&P completed prior to the start time of the procedure. IMPRESSION AND PLAN HPI: This is a 28 year old male. For colonoscopy Abdominal pain, BRBPR, changes in bowel habits. Pertinent Review of Systems: GI: See HPI All other reviewed and negative other than HPI. PAST MEDICAL HISTORY: PAST MEDICAL HISTORY Diagnosis Date NEGATIVE MEDICAL HISTORY 04/13/2016 PAST SURGICAL HISTORY: PAST SURGICAL HISTORY Procedure Laterality Date TONSILLECTOMY HX 2000 OBJECTIVE: PHYSICAL EXAM: VITALS: BP 131/90 Pulse 111 Temp 37.1 C (98.8 F) (Temporal) Resp 16 Ht 172.7 cm (5' 8) Wt 79.4 kg (175 lb) SpO2 98% BMI 26.61 kg/m General appearance: A&Ox3 Respiratory: Normal chest expansion. No audible wheezes. CVS: No shortness of breath, no extremity edema. Regular pulse. Plan: OK to proceed with endoscopy. SIGNATURE: Bladimir Tomas MD PATIENT NAME: AWA Goss [facility] 07-03-2024 History and physical note Endoscopy pre-operative H&P H&P completed prior to the start time of the procedure. IMPRESSION AND PLAN HPI: This is a 28 year old male. For colonoscopy Abdominal pain, BRBPR, changes in bowel habits. Pertinent Review of Systems: GI: See HPI All other reviewed and negative other than HPI. PAST MEDICAL HISTORY: PAST MEDICAL HISTORY Diagnosis Date NEGATIVE MEDICAL HISTORY 04/13/2016 PAST SURGICAL HISTORY: PAST SURGICAL HISTORY Procedure Laterality Date TONSILLECTOMY HX 2000 OBJECTIVE: PHYSICAL EXAM: VITALS: BP 131/90 Pulse 111 Temp 37.1 C (98.8 F) (Temporal) Resp 16 Ht 172.7 cm (5' 8) Wt 79.4 kg (175 lb) SpO2 98% BMI 26.61 kg/m General appearance: A&Ox3 Respiratory: Normal chest expansion. No audible wheezes. CVS: No shortness of breath, no extremity edema. Regular pulse. Plan: OK to proceed with endoscopy. SIGNATURE: Bladimir Tomas MD PATIENT NAME: AWA Goss documented in this encounter [facility] 06-11-2024 Instructions Amairani Montero PA-C - 06/11/2024 8:48 AM EDT Images from the original note were not included. - Start OTC probiotic with at least 15 billion live cultures, 10+ strains - Drink around 64 oz water daily Improving Your Health with Fiber This guide provides basic information to help you start increasing dietary fiber in your diet. These are general guidelines that may be tailored to meet your needs. Fiber is an important dietary substance to help support your health. Making changes in your current eating habits will help you eat more healthfully. Most fiber-containing foods are also good sources of vitamins, minerals, and antioxidants, which offer many health benefits. A registered dietitian can provide in-depth nutrition education to help you develop a personal action plan. What is fiber? Fiber is the structural part of plant foods--such as fruits, vegetables, and grains--that our bodies cannot digest or break down. There are two kinds of fiber: soluble and insoluble. Soluble fiber: dissolves in water to form a gummy gel. It can slow down the passage of food from the stomach to the intestine. Examples: dried beans, oats, barley, bananas, potatoes, and soft parts of apples and pears Insoluble fiber: often referred to as roughage because it does not dissolve in water. It holds onto water, which helps produce softer, bulkier stools to help regulate bowel movements. Examples: whole bran, whole grain products, nuts, corn, carrots, grapes, berries, and peels of apples and pears What other things does fiber do? Research has shown that a diet rich in fiber is associated with many health benefits, including the following: Lowers cholesterol-Soluble fiber has been shown to lower cholesterol by binding to bile (composed of cholesterol) and taking it out of the body. This may help reduce the risk of heart disease. Better regulates blood sugar levels-A high-fiber meal slows down the digestion of food into the intestines, which may help to keep blood sugars from rising rapidly. Weight control-A high-fiber diet may help keep you graham longer, which prevents overeating and hunger between meals. May prevent intestinal cancer-Insoluble fiber increases the bulk and speed of food moving through the intestinal tract, which reduces time for harmful substances to build up. Constipation-Constipation can often be relieved by increasing the fiber or roughage in your diet. Fiber works to help regulate bowel movements by pulling water into the colon to produce softer, bulkier stools. This action helps to promote better regularity. How much fiber should I eat? The Academy of Nutrition and Dietetics recommends consuming about 25-35 grams of total fiber per day, with 10-15 grams from soluble fiber or 14g of fiber per 1,000 calories. This can be accomplished by choosing 6 ounces of grains (3 or more ounces from whole grains), 2 cups of vegetables, and 2 cups of fruit per day (based on a 2,000 calorie/day pattern). However, as we age, fiber requirements decrease. For those over the age of 70, the recommendation for women is 21 grams and for men 30 grams of total fiber per day. Note: Eating a high-fiber diet may interfere with the absorption and effectiveness of some medications. Speak to your doctor about which medications to take with caution and when to take them. Fiber also binds with certain nutrients and carries them out of the body. To avoid this, aim for the recommended 20-35 grams of fiber per day. When eating a high-fiber diet, be sure to drink at least eight glasses of fluid each day. Tips for increasing dietary fiber in your diet: Add fiber to your diet slowly. Too much fiber all at once may cause cramping, bloating, and constipation. When adding fiber to your diet, be sure to increase fluids (at least 64 ounces per day) to prevent constipation. Buy bread with 2-4 grams of dietary fiber per slice. Buy cereals with at least 5 grams of dietary fiber per serving. Choose cereals with a whole grain such as whole wheat or whole grain rolled oats. Choose raw fruits and vegetables in place of juice. Choose products that have a whole grain listed as the first ingredient, not enriched flour. Whole wheat flour is a whole grain--wheat flour is not. Try alternative fiber choices such as whole buckwheat, whole wheat couscous, quinoa, bulgur, wheat germ, noelle seeds, hemp seeds, lentil pasta, and edamame pasta. Popcorn is a whole grain. Serve it low-fat without butter for a healthier snack choice. Try whole wheat bread and whole wheat pastas. Sprinkle bran in soups, cereals, baked products, spaghetti sauce, ground meat, and casseroles. Bran also mixes well with orange juice. Use dried peas, beans, and legumes in main dishes, salads, or side dishes such as rice or pasta. Eat the skins of raw fruits and vegetables. Add dried fruit to yogurt, cereal, rice, and muffins. Try brown rice and whole grain pastas. Choose crackers with a whole grain listed as the first ingredient. Look for whole grain rye and wheat crackers. Fiber supplements Fiber supplements may be an option if you are not able to get enough fiber from your diet. Fiber supplements can be used to normalize both constipation and diarrhea. Check with your doctor before starting any kind of supplement. Read labels for fiber carefully. Drink at least 8 ounces of liquids with your supplement. Taking some fiber supplements without adequate liquids may cause the fiber to swell and may cause choking and constipation. . Some fiber supplements to consider are Benefiber (wheat dextrin), Metamucil (psyllium), Konsyl (psyllium), Citrucel (methylcellulose), Fibercon (SmartFiber derived from cellulose), and FiberChoice (inulin). Psyllium husk and guar gum are soluble fibers. Consider keeping a food journal and tracking how much fiber you eat in a typical day. Use the fiber content chart in this handout as a guide to meeting your high fiber goal or check with www.NAL.usda.gov/fnic for additional information on the dietary fiber content of food. Fiber Content of Common Foods Food Category Food Serving Size Total Fiber (grams) Soluble Fiber (grams) Starches, Grains, Starchy vegetables Breads Bagel-whole wheat Light white/wheat Angeline-whole wheat Pumpernickel Whole wheat [place] 3 1/2 inches 2 slices 7 inches slice slice slice 3 1 4 3 2 2 1 trace 1 1 trace 1 Cereals Bran flakes Cheerios Oatmeal Fiber One All Bran Kashi Heart to Heart 3/4 cup 1 1/4 cup 1 cup cooked 1/2 cup 2/3 cup 3/4 cup 5 4 4 14 13 5 trace 1 2 1 1 1 Grains Barley Brown rice Pasta-whole wheat Quinoa Lentil pasta Edamame pasta 1/2 cup cooked 1/2 cup 1/2 cup cooked 1/2 cup cooked 1/2 cup cooked 4 2 3 2 17 22 1 trace 1 1 2 3 Legumes and starchy vegetables Garbanzo beans Kidney beans Lentils Potato (with skin) Potatoes, sweet Squash (winter) Green peas, cooked Laurent beans [place], cooked 1/2 cup 1/2 cup 1/2 cup 1 medium 1/2 cup 1/2 cup 1/2 cup 1/2 cup 1/2 cup 4 6 5 3 4 3 4 7 2 1 3 1 1 2 2 1 3 trace Nuts and Seeds Almonds Peanuts [place] seeds Walnuts Flaxseed(ground) Noelle Seeds Hemp Seeds 1/4 cup 1/4 cup 1/4 cup 1/4 cup 1/8 c or 2tbsp 1/8 c or 2tbsp 1/8 c or 2tbsp 3 3 3 2 4 10 2 1 1 1 trace 2 7 1 Fruits Apple with skin Banana Blueberries Grapefruit [place] Pear with skin Prunes Strawberries 1 medium 1 medium 1 cup 1/2 cup 1 medium 1 medium 3 1 cup 3 2 2 1 3 4 2 4 1 1 trace 1 2 2 1 1 Vegetables, non-starchy Broccoli [place] sprouts Cabbage-green Carrot Cauliflower Green beans Kale Spinach Squash (zucchini) 1/2 cup 1/2 cup 1 cup, fresh 1/2 cup, cooked 1/2 cup, cooked 1/2 cup 1/2 cup 1/2 cup 1/2 cup 3 4 2 2 1 2 3 2 1 1 2 1 1 trace 1 1 1 1 How to read a food label Food labels are standardized by the U.[place]. government's National Labeling and Education Act (NLEA). Nutrition labels and an ingredient list are required on most foods, so that you can make the best selection for a healthy lifestyle. Review the food label below. Determine the total amount of fiber in this product or ask your registered dietitian or healthcare provider to show you how to read food labels and apply the information to your personal needs. In order for a product to be labeled high fiber, it must contain 5 grams or more of dietary fiber per serving. COLONOSCOPY BOWEL PREPARATION INSTRUCTIONS MiraLAX Your doctor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
[2025-02-10 21:00] VITALS: BP 143/93; PULSE 98; RESP 18; TEMP 37; O2SAT 97
[2025-02-10 21:07] LABS: Anion Gap 14 (5-15); BUN 14 mg/dL (4-19); BUN/Creat Ratio 13.7 RATIO (10-20); Calcium,Total 9.7 mg/dL (7.6-11.0); Carbon Dioxide 23.1 mmol/L (21.0-32.0); Chloride 102 mmol/L (98-108); Estimated Creatinine Clearance 117.53 ml/min (50-250); Glucose 84 mg/dL (70-99); Potassium 3.8 mmol/L (3.3-5.1)
[2025-02-10 22:00] VITALS: BP 122/81; PULSE 95; RESP 16; TEMP 37; O2SAT 100
[2025-02-10 22:39] VITALS: BP 132/89; PULSE 96; RESP 16; TEMP 37; O2SAT 100
== END 2025-02-10 22:52 | disposition home or self-care (01) ==
PROVIDERS: Emergency Provider Emergency Medicine; PCP Nurse Practitioner Adult Health; Visit Provider Emergency Medicine
DX: S61.431A Puncture wound without foreign body of right hand, initial encounter (principal); W55.01XA Bitten by cat, initial encounter; R00.0 Tachycardia, unspecified
CPT/HCPCS: 73130; 80048; 83605; 85025; 96361; 96365; 99284; A4216; J0295